=== PATIENT | female | born 1995 | race Caucasian/White ===

== ENCOUNTER 2020-11-26 06:33 | Emergency (ER) | payer OTHER ==
[~2020-11-26] VITALS: Ht 170.2 cm; Wt 59.0 kg
[2020-11-26 06:35] VITALS: BP 135/84
[2020-11-26 06:54] VITALS: BP 135/84
== END 2020-11-26 06:54 ==
LOC: MED 06:33
DX: F12.10 Cannabis abuse, uncomplicated (principal); F17.210 Nicotine dependence, cigarettes, uncomplicated; Z02.89 Encounter for other administrative examinations
CPT/HCPCS: 99283